=== PATIENT | female | born 1965 | race Caucasian/White ===

== ENCOUNTER → 2016-10-28 | Outpatient (CLI) | payer BC ==
[~2016-10-28] MED LIST: ALPR.5T PO; HYDROCODONE; HYOS0.1217 PO; Hydrocodone Bit/Acetaminophen PO; IBP600T1 PO; LRT10T; NAPR-689 PO; NITR-65 PO; PHEN200T27 PO; ZLP10T PO
--- NOTE | 2016-10-29 20:04 | Diagnostic Imaging Report ---
Digital mammogram bilateral screening This study was compared to the prior exams of 06/23/15, 05/19/14, and 04/01/13. At this time, there are no current complaints. The current study was also evaluated with a Computer Aided Detection (CAD) system. FINDINGS: The fibroglandular tissue in both breasts is heterogeneously dense. This does limit the sensitivity of this exam. Overall, there does not appear to have been any significant change when compared to the prior study. No primary or secondary sign of malignancy is noted. IMPRESSION: There is no radiographic evidence for malignancy. ACR BI-RADS Category 1: Negative. Result letter will be mailed to the patient. Note: At least 10% of breast cancer is not imaged by mammography. Dictated by: Dictated on workstation # [id number]
== END ==
LOC: RAD 07:43
PROVIDERS: ATTEND Nurse Practitioner
DX: Z12.31 Encounter for screening mammogram for malignant neoplasm of breast (principal)
CPT/HCPCS: 77067

== ENCOUNTER 2018-11-16 06:09 | Outpatient (CLI) | payer OTHER ==
[~2018-11-16] VITALS: Ht 185.4 cm; Wt 154.2 kg
[2018-11-16] MEDS ORDERED: CITA40TA19 PO (12:28)
[2018-11-16] MEDS ORDERED: ZOLP10TA5 PO (12:28)
[2018-11-16] MEDS ORDERED: ALPR0.5T7 PO (12:28)
== END 2018-11-16 12:37 | disposition home or self-care (01) ==
LOC: PREOP 06:09
PROVIDERS: ATTEND Otolaryngology Otolaryngology/Facial Plastic Surgery
DX: Z01.818 Encounter for other preprocedural examination (principal)

== ENCOUNTER 2018-11-19 07:06 | Day surgery (SDC) | payer OTHER ==
[~2018-11-19] VITALS: Ht 185.4 cm; Wt 153.4 kg
[~2018-11-19 07:06] MED LIST changes: +ALPR0.5T7 PO; +CITA40TA19 PO; +ZOLP10TA5 PO
[2018-11-19 07:30] VITALS: BP 191/90
--- OUTSIDE RECORDS SUMMARY | 2018-11-19 07:38 | XMS REPORT | Continuity of Care Document ---
Author Author [facility] Organization [facility] Address Unknown Phone Unavailable Allergies Active Description Code Type Severity Reaction Onset Reported/Identified Relationship to Patient Clinical Status Yes NO KNOWN DRUG ALLERGIES NO KNOWN DRUG ALLERG UNKNOWN Yes NO KNOWN DRUG ALLERGIES UNKNOWN NO KNOWN DRUG ALLERG Yes No Known Drug Allergies [id number] Drug Allergy Unknown N/A 08/16/2008 Medications There is no data. Problems Date Dx Coded Attending Type Code Diagnosis Diagnosed By 01/08/2013 ALLEY PRITCHARD, BRUCE Lamb Ot 327.23 OBSTRUCTIVE SLEEP APNEA (ADULT) (PEDIATR 11/18/2013 EDWARD MOREL DO Ot 596.89 OTHER SPECIFIED DISORDERS OF BLADDER 11/18/2013 EDWARD MOREL DO Ot 618.5 POSTOP VAGINAL PROLAPSE 11/18/2013 EDWARD MOREL DO Ot 623.8 NONINFLAM DIS VAGINA NEC 11/18/2013 EDWARD MOREL DO Ot 625.6 FEM STRESS INCONTINENCE 11/18/2013 EDWARD MOREL DO Ot 788.30 UNSPECIFIED URINARY INCONTINENCE 11/22/2013 RIGO MONTERO DO Ot 338.18 OTHER ACUTE POSTOPERATIVE PAIN 11/22/2013 RIGO MONTERO DO Ot 564.00 UNSPEC CONSTIPATION 11/22/2013 RIGO MONTERO DO Ot 599.0 URIN TRACT INFECTION NOS 11/22/2013 RIGO MONTERO DO Ot 789.00 ABDOMINAL PAIN, UNSPECIFIED SITE 12/27/2014 Ot V76.12 12/27/2014 Ot V76.12 12/27/2014 Ot V76.12 12/27/2014 NIMA BRIONES Ot V76.12 12/27/2014 EDWARD MOREL DO Ot 618.01 12/27/2014 EDWARD MOREL DO Ot 623.8 12/27/2014 EDWARD MOREL DO Ot V72.63 12/27/2014 EDWARD MOREL DO Ot V72.84 12/27/2014 EDWARD MOREL DO Martha Ot V74.8 12/27/2014 QUICK, NIMA Ariela LUJAN Ot V76.12 06/21/2015 Ot V76.12 06/21/2015 Ot V76.12 06/21/2015 ANSELMO, NIMA Ariela LUJAN Ot V76.12 06/21/2015 MOREL EDWARD SAAVEDRA Martha Ot 618.01 06/21/2015 MOREL EDWARD C Ot 623.8 06/21/2015 MOREL EDWARD Ot V72.63 06/21/2015 MOREL EDWARD C Ot V72.84 06/21/2015 MOREL EDWARD Martha Ot V74.8 06/21/2015 QUICKNIMA Ot V76.12 06/29/2015 NIMA BRIONES Ot Z12.31 07/06/2015 NIMA BRIONES Ot Z12.31 05/21/2016 Efraín Rowland 724.2 LUMBAGO 05/21/2016 Efraín Rowland M54.5 LOW BACK PAIN 05/22/2016 Ot V76.12 OTH SCREEN MAMMO-MALIGN NEOPLASM OF MEGAN 05/22/2016 Ot V76.12 OTH SCREEN MAMMO-MALIGN NEOPLASM OF MEGAN 05/22/2016 NIMA BRIONES Ot V76.12 OTH SCREEN MAMMO-MALIGN NEOPLASM OF MEGAN 05/22/2016 EDWARD MOREL DO Ot 618.01 CYSTOCELE, MIDLINE 05/22/2016 EDWARD MOREL DO Ot 623.8 NONINFLAM DIS VAGINA NEC 05/22/2016 EDWARD MOREL DO Ot V72.63 PRE-PROCEDURAL LABORATORY EXAMINATION 05/22/2016 EDWARD MOREL DO Ot V72.84 EXAM PRE-OPERATIVE NOS 05/22/2016 EDWARD MOREL DO Ot V74.8 SCREEN-BACTERIAL DIS NEC 05/22/2016 NIMA BRIONES Ot V76.12 OTH SCREEN MAMMO-MALIGN NEOPLASM OF MEGAN 05/22/2016 NIMA BRIONES Ot Z12.31 ENCNTR SCREEN MAMMOGRAM FOR MALIGNANT NE 10/29/2016 NIMA BRIONES Ot Z12.31 ENCNTR SCREEN MAMMOGRAM FOR MALIGNANT NE 11/13/2016 QUICK, NIMA GEIGERP Ot Z12.31 ENCNTR SCREEN MAMMOGRAM FOR MALIGNANT NE 01/05/2018 ANSELMO, NIMA GEIGERP Ot V76.12 OTH SCREEN MAMMO-MALIGN NEOPLASM OF MEGAN 01/05/2018 CARMEN MOREL DOA C Ot 618.01 CYSTOCELE, MIDLINE 01/05/2018 MOREL DO EDWARD C Ot 623.8 NONINFLAM DIS VAGINA NEC 01/05/2018 ADRIEL SAAVEDRA EDWARD C Ot V72.63 PRE-PROCEDURAL LABORATORY EXAMINATION 01/05/2018 CARMEN MOREL DOA C Ot V72.84 EXAM PRE-OPERATIVE NOS 01/05/2018 ADRIEL DO EDWARD C Ot V74.8 SCREEN-BACTERIAL DIS NEC 01/05/2018 QUICKNIMAP Ot V76.12 OTH SCREEN MAMMO-MALIGN NEOPLASM OF MEGAN 01/05/2018 NIMA BRIONESP Ot Z12.31 ENCNTR SCREEN MAMMOGRAM FOR MALIGNANT NE 01/05/2018 QUICK, NIMA Titus [employer] ENGINEER OFFICER Ot Z12.31 ENCNTR SCREEN MAMMOGRAM FOR MALIGNANT NE 01/05/2018 QUICK, NIMA GEIGERP Ot V76.12 OTH SCREEN MAMMO-MALIGN NEOPLASM OF MEGAN 01/05/2018 CARMEN MOREL DOA C Ot 618.01 CYSTOCELE, MIDLINE 01/05/2018 ADRIEL SAAVEDRA EDWARD C Ot 623.8 NONINFLAM DIS VAGINA NEC 01/05/2018 ADRIEL SAAVEDRA EDWARD C Ot V72.63 PRE-PROCEDURAL LABORATORY EXAMINATION 01/05/2018 CARMEN MOREL DOA C Ot V72.84 EXAM PRE-OPERATIVE NOS 01/05/2018 ADRIEL DO EDWARD C Ot V74.8 SCREEN-BACTERIAL DIS NEC 01/05/2018 QUICK, NIMA Titus [employer]FIELD ENGINEER OFFICER Ot V76.12 OTH SCREEN MAMMO-MALIGN NEOPLASM OF MEGAN 01/05/2018 NIMA BRIONES AIRFIELD ENGINEER OFFICER Ot Z12.31 ENCNTR SCREEN MAMMOGRAM FOR MALIGNANT NE 01/05/2018 QUICK, NIMA Titus [employer]FIELD ENGINEER OFFICER Ot Z12.31 ENCNTR SCREEN MAMMOGRAM FOR MALIGNANT NE 01/06/2018 QUICKNIMA AIRFIELD ENGINEER OFFICER Ot V76.12 OTH SCREEN MAMMO-MALIGN NEOPLASM OF MEGAN 01/06/2018 EDWARD MOREL DO Martha Ot 618.01 CYSTOCELE, MIDLINE 01/06/2018 EDWARD MOREL DO Ot 623.8 NONINFLAM DIS VAGINA NEC 01/06/2018 EDWARD MOREL DO Ot V72.63 PRE-PROCEDURAL LABORATORY EXAMINATION 01/06/2018 EDWARD MOREL DO Ot V72.84 EXAM PRE-OPERATIVE NOS 01/06/2018 EDWARD MOREL DO Martha Ot V74.8 SCREEN-BACTERIAL DIS NEC 01/06/2018 NIMA BRIONES Ot V76.12 OTH SCREEN MAMMO-MALIGN NEOPLASM OF MEGAN 01/06/2018 NIMA BRIONES Ot Z12.31 ENCNTR SCREEN MAMMOGRAM FOR MALIGNANT NE 01/06/2018 NIMA BRIONES Ot Z12.31 ENCNTR SCREEN MAMMOGRAM FOR MALIGNANT NE 11/16/2018 BRUCE HAGER MD Ot Z01.818 ENCOUNTER FOR OTHER PREPROCEDURAL EXAMIN Procedures Code Description Performed By Performed On 57.32 CYSTOSCOPY NEC 11/16/2013 59.79 URIN INCONTIN REPAIR NEC 11/16/2013 67.4 AMPUTATION OF CERVIX 11/16/2013 70.51 CYSTOCELE REPAIR 11/16/2013 Results Test Result Range Thyroid Stimulating Hormone - 03/17/17 09:59 TSH 1.99 mIU/mL 0.32-5.00 Encounters ACCT No. Visit Date/Time Discharge Status Pt. Type Provider Facility Loc./Unit Complaint [id number] 11/16/2018 06:09:00 11/16/2018 12:37:00 DIS Outpatient BRUCE HAGER MD [facility] PREOP CHRONIC SINUSITIS [id number] 12/10/2017 07:17:00 12/10/2017 23:59:59 CLS Preadmit NIMA BRIONES [facility] RAD SCREENING [id number] 10/28/2016 07:43:00 10/28/2016 23:59:59 CLS Outpatient NIMA BRIONES [facility] RAD SCREENING [id number] 06/23/2015 13:45:00 06/23/2015 23:59:59 CLS Outpatient NIMA BRIONES [facility] RAD SCREENING [id number] 05/19/2014 07:38:00 05/19/2014 23:59:59 CLS Outpatient NIMA BRIONES [facility] RAD SCREENING [id number] 11/22/2013 00:49:00 11/22/2013 03:33:00 DIS Emergency RIGO MONTERO DO [facility] ER ABD PAIN [id number] 11/16/2013 06:04:00 11/18/2013 12:05:00 DIS Inpatient ADRIEL SAAVEDRAEDWARD [facility] WS VAGINAL BLEEDING [id number] 11/09/2013 09:11:00 11/09/2013 23:59:59 CLS Outpatient EDWARD MOREL DO [facility] PREOP VAGINAL BLEEDING, STRESS URINARY INC [id number] 04/01/2013 09:30:00 04/01/2013 23:59:59 CLS Outpatient NIMA BRIONES [facility] RAD SCREENING [id number] 01/07/2013 20:48:00 01/08/2013 06:35:00 DIS Outpatient BRUCE HAGER MD [facility] SLEEP SHAR,SNORING [id number] 11/19/2018 08:15:00 PEN Preadmit BRUCE HAGER MD [facility] SDC CHRONIC SINUSITIS [id number] 12/27/2014 10:08:00 Document Registration [id number] 01/03/2012 12:44:00 Document Registration [id number] 12/13/2010 13:38:00 Document Registration [id number] 03/17/2017 09:55:00 03/17/2017 23:59:00 DIS Outpatient Efraín Rowland [id number] 05/21/2016 15:52:00 06/10/2016 14:00:00 DIS Outpatient Efraín Rowland [id number] 04/27/2018 11:12:46 Document Registration
[2018-11-19] MEDS: LACTATED RINGERS 1,000 ML IV PRN ×2 (07:45→09:15)
[2018-11-19] MEDS ORDERED: HYDROCORTISONE 100 MG/2 ML (Solu-CORTEF) VIAL ONE (07:53)
[2018-11-19] MEDS ORDERED: MIDAZOLAM 2 MG/2 ML (VERSED) VIAL ONE (07:54)
[2018-11-19] MEDS ORDERED: MIDAZOLAM 2 MG/2 ML (VERSED) VIAL IV ONE (08:00)
[2018-11-19] MEDS ORDERED: PHENYLEPHRINE 0.5% NASAL SPR (NEO-SYNEPHRINE) REG ONE (08:01)
[2018-11-19] MEDS ORDERED: COCAINE HCL 4% 2 ML SYR ONE (08:01)
[2018-11-19] MEDS ORDERED: LIDOCAINE/EPI 1%-1:100,000 (XYLOCAINE) 20ML ONE (08:01)
[2018-11-19 08:03] LABS: BASOPHILS % (AUTO) 0 % (0-10); EOSINOPHILS % (AUTO) 0 % (0-10); HEMATOCRIT 39 % (35-52); HEMOGLOBIN 13.3 G/DL (11.5-16.0); LYMPHOCYTES # (AUTO) 2.3 X 10^3 (1.0-4.0); LYMPHOCYTES % (AUTO) 26 % (12-44); MEAN CORPUSCULAR HEMOGLOBIN 31 PG (25-34); MEAN CORPUSCULAR HGB CONC 35 G/DL (32-36); MEAN CORPUSCULAR VOLUME 89 FL (80-99); MEAN PLATELET VOLUME 9.3 FL (7.4-10.4); MONOCYTES # (AUTO) 0.4 X 10^3 (0.0-1.0); MONOCYTES % (AUTO) 5 % (0-12); NEUTROPHILS # (AUTO) 6.1 X 10^3 (1.8-7.8); NEUTROPHILS % (AUTO) 69 % (42-75); PLATELET COUNT 263 10^3/uL (130-400); RED CELL DISTRIBUTION WIDTH 13.9 % (10.0-14.5); WHITE BLOOD COUNT 8.8 10^3/uL (4.3-11.0)
[2018-11-19] MEDS ORDERED: fentaNYL INJECTION 100 MCG/2 ML AMP ONE ×3 (08:05→11:07)
[2018-11-19] MEDS ORDERED: ONDANSETRON 4 MG/2 ML (SDV) Z0FRAN ONE (08:08)
[2018-11-19] MEDS ORDERED: LIDOCAINE PF 2% 5 ML (XYLOCAINE) VIAL ONE (08:08)
[2018-11-19] MEDS ORDERED: SEVOFLURANE (ULTANE) 15 ML INHAL SOLN ONE (08:08)
[2018-11-19] MEDS ORDERED: LIDOCAINE JELLY 2% 6 ML SYRINGE ONE (08:08)
[2018-11-19] MEDS ORDERED: ROCURONIUM 10 MG/ML 5 ML SYRINGE IV ONE (08:08)
[2018-11-19] MEDS ORDERED: proPOfol 200 MG/20 ML (DIPRIVAN) VIAL IV ONE (08:08)
[2018-11-19 08:12] LABS: BUN/CREATININE RATIO 25; CALCIUM 9.4 MG/DL (8.5-10.1); CARBON DIOXIDE 24 MMOL/L (21-32); CHLORIDE 107 MMOL/L (98-107); CREATININE SERUM 0.81 MG/DL (0.60-1.30); GFR ESTIMATED > 60; GLUCOSE 106 MG/DL (70-105); POTASSIUM 4.1 MMOL/L (3.6-5.0); SODIUM 139 MMOL/L (135-145)
[2018-11-19] MEDS ORDERED: HYDROCORTISONE 100 MG/2 ML (Solu-CORTEF) VIAL IV ONE ×2 (08:15)
[2018-11-19] MEDS ORDERED: AMPICILLIN/SULBACTAM INJECTION 1.5 GM in NS (IVPB) 100 ML IV ONE (08:15)
[2018-11-19] MEDS ORDERED: CATHETER FLUSH 10 ML SYR IV PRN (08:15)
[2018-11-19] MEDS ORDERED: AMPICILLIN/SULBACTAM 1.5 GM/NS 100 ML IVPB IV ONE ×2 (08:15)
[2018-11-19] MEDS ORDERED: BSS 15 ML ONE (08:17)
--- NOTE | 2018-11-19 08:21 | Progress Note-Pre Operative ---
Pre-Operative Progress Note H&P Reviewed The H&P was reviewed, patient examined and no changes noted. Date Seen by Provider: Nov 19, 2018 Time Seen by Provider: 08:00 Date H&P Reviewed: Nov 19, 2018 Time H&P Reviewed: 08:00 Pre-Operative Diagnosis: Bilat Chronic Sinusistis, Deviated Nasal Septum , Bilat hyper of Inf Turbs BRUCE HAGER MD Nov 19, 2018 08:20
[2018-11-19] MEDS ORDERED: ONDANSETRON 4 MG/2 ML (SDV) Z0FRAN IVP PRN (08:45)
[2018-11-19] MEDS ORDERED: fentaNYL INJECTION 100 MCG/2 ML AMP IVP ONE (08:45)
[2018-11-19] MEDS ORDERED: morphine INJ 10 MG/ML 1ML (SYR OR VIAL) IVP ONE (08:45)
[2018-11-19] MEDS ORDERED: MEPERIDINE (DEMEROL) INJ 50 MG/ML IVP ONE (08:45)
[2018-11-19] MEDS ORDERED: GLYCOPYRROLATE 0.2 MG/ML (ROBINUL) 2 ML VIAL ONE (09:57)
[2018-11-19] MEDS ORDERED: NEOSTIGMINE 1 MG/ML 5 ML SYRINGE ONE (09:57)
[2018-11-19] MEDS ORDERED: D5 1/2 NS W/KCL 20 MEQ/L 1,000 ML IV SCH (10:04)
--- NOTE | 2018-11-19 10:04 | Progress Note-Post Operative ---
Post-Operative Progess Note Surgeon (s)/Clinical Nursing Intern (s) Surgeon BRUCE HAGER MD Clinical Nursing Intern n/a Pre-Operative Diagnosis Bilat Chronic Sinusistis, Deviated Nasal Septum , Bilat hyper of Inf Turbs Post-Operative Diagnosis same Post-Op Procedure Note Date of Procedure: Nov 19, 2018 Name of Procedure Performed: Bilat ESS, Nasal Septoplasty, Bilat Red of Inf Turbs Description & Findings Description and Findings: n/a Anesthesia Type get Estimated Blood Loss minimal Packing none. Specimen(s) collected/removed bilat chornic sinusitis, nasal septum BRUCE HAGER MD Nov 19, 2018 10:04
[2018-11-19] MEDS ORDERED: ACETAMINOPHEN 325 MG TABLET PO PRN (10:15)
[2018-11-19] MEDS ORDERED: PROMETHAZINE INJ 25 MG/ML (PHENERGAN) AMP IVP PRN (10:15)
[2018-11-19] MEDS ORDERED: HYDROcodone/APAP 5 MG/325 MG (LORTAB) TAB PO PRN (10:15)
[2018-11-19] MEDS ORDERED: predniSONE 20 MG TAB PO ONE (10:15)
[2018-11-19] MEDS ORDERED: LABETALOL HCL 20 MG/4 ML VIAL ONE (10:20)
[2018-11-19] MEDS: LABETALOL HCL 20 MG/4 ML VIAL IV PRN ×2 (10:34→10:45)
[2018-11-19] MEDS ORDERED: MEPERIDINE (DEMEROL) INJ 50 MG/ML ONE (10:58)
[2018-11-19 11:17] VITALS: BP 168/88
[2018-11-19] MEDS ORDERED: TRAM50TA2 PO (11:43)
[2018-11-19] MEDS ORDERED: PRD20T PO (11:43)
[2018-11-19] MEDS ORDERED: AMOX-355 PO (11:43)
[2018-11-19 11:45] VITALS: BP 156/78
[2018-11-19 12:15] VITALS: BP 165/75
[2018-11-19] MEDS ORDERED: predniSONE 20 MG TAB ONE (12:52)
[2018-11-19 13:15] VITALS: BP 168/77
[2018-11-19 13:30] VITALS: BP 168/77
--- NOTE | 2018-11-19 14:36 | Anesthesia-General Post-Op ---
General Patient Condition Mental Status/LOC: Same as Preop Cardiovascular: Satisfactory Nausea/Vomiting: Absent Respiratory: Satisfactory Pain: Controlled Complications: Absent Post Op Complications Complications None Follow Up Care/Instructions Patient Instructions None needed. Anesthesia/Patient Condition Patient Condition Patient was seen after the procedure and she was doing well, no complaints, stable vital signs, no apparent adverse anesthesia problems. ROME RUBY DO Nov 19, 2018 14:36
== END 2018-11-19 13:30 | disposition home or self-care (01) ==
LOC: SDC 07:06
PROVIDERS: ATTEND Otolaryngology Otolaryngology/Facial Plastic Surgery
DX: J32.2 Chronic ethmoidal sinusitis (principal); J34.2 Deviated nasal septum; J34.3 Hypertrophy of nasal turbinates; F41.9 Anxiety disorder, unspecified; E66.01 Morbid (severe) obesity due to excess calories; Z68.42 Body mass index [BMI] 45.0-49.9, adult; Z79.899 Other long term (current) drug therapy
CPT/HCPCS: 36415; 80048; 85025; 87081; 93005

== ENCOUNTER → 2019-11-03 | Outpatient (CLI) | payer BC, OTHER ==
[~2019-11-03] MED LIST changes: +AMOX-355 PO; +PRD20T PO; +TRM50T PO
--- NOTE | 2019-11-03 12:26 | Diagnostic Imaging Report ---
INDICATION: Routine screening. COMPARISON: Comparison is made with prior mammograms from 10/28/2016 and 06/23/2015. TECHNIQUE: 2-D and 3-D bilateral screening mammography was performed. The current study was also evaluated with a Computer Aided Detection (CAD) system. 3-D tomosynthesis was also performed and reviewed. FINDINGS: Scattered fibroglandular densities are identified bilaterally. Numerous circumscribed densities are noted in both breasts, most consistent with benign etiologies. No spiculated mass or malignant appearing microcalcifications are seen. Axillae are unremarkable. IMPRESSION: No mammographic features suspicious for malignancy are identified. ACR BI-RADS Category 2: Benign findings. Result letter will be mailed to the patient. Note: At least 10% of breast cancer is not imaged by mammography. Dictated by: Dictated on workstation # [id number]
== END ==
LOC: RAD 11:00
PROVIDERS: ATTEND Nurse Practitioner
DX: Z12.31 Encounter for screening mammogram for malignant neoplasm of breast (principal); Z01.419 Encounter for gynecological examination (general) (routine) without abnormal findings; F41.1 Generalized anxiety disorder
CPT/HCPCS: 77067